=== PATIENT | male | born 1930 | race Caucasian/White ===

== ENCOUNTER 2018-03-01 12:30 | Inpatient (IN) | payer MEDICARE ==
[2018-03-01 09:32] VITALS: BMI 24.4
[2018-03-13] MEDS ORDERED: Vancomycin HCl 1.5 GM in Sodium Chloride 0.9% 250 ML 300 ML IVPB SCH ×3 (06:15→18:00)
[2018-03-13] MEDS ORDERED: Levofloxacin 500 mg/D5W 100 ml Premix Bag ONE (07:01)
[2018-03-13] MEDS ORDERED: Sodium Chloride 0.9% 100 ML ONE (07:01)
[2018-03-13] MEDS ORDERED: Promethazine HCl 25 MG/ML VIAL IM PRN ×2 (07:04→08:30)
[2018-03-13] MEDS ORDERED: Ondansetron HCl/PF 4 MG/2 ML Vial IVP PRN ×2 (07:04→08:30)
[2018-03-13] MEDS ORDERED: traMADol HCl 50 MG TAB PO PRN ×3 (07:04→08:30)
[2018-03-13] MEDS ORDERED: Acetaminophen 325 MG TAB PO PRN (07:04)
[2018-03-13] MEDS ORDERED: HYDROcodone/Acetaminophen 10/325 mg Tablet PO PRN (07:04)
[2018-03-13] MEDS ORDERED: diphenhydrAMINE 25 MG CAP PO PRN ×2 (07:04→08:30)
[2018-03-13] MEDS ORDERED: Zolpidem Tartrate 5 MG TAB PO PRN ×2 (07:04→08:30)
[2018-03-13] MEDS ORDERED: Fentanyl 100 MCG/2 ML VIAL SLOW IVP PRN ×2 (07:04)
[2018-03-13] MEDS ORDERED: Tranexamic Acid 1,000 MG in Sodium Chloride 0.9% 100 ML IVPB SCH (07:15)
[2018-03-13] MEDS ORDERED: Hydrocerin (Eucerin) Cream 120 gm Jar TOP PRN (08:30)
[2018-03-13] MEDS ORDERED: Bupivacaine 0.25% 10 ML VIAL EPIDURAL PRN (08:30)
[2018-03-13] MEDS ORDERED: fentaNYL Citrate/PF 1,250 MCG, Bupivacaine 25 ML in Sodium Chloride 0.9% 250 ML 200 ML EPIDURAL SCH (08:30)
[2018-03-13] MEDS ORDERED: diphenhydrAMINE 50 MG/ML VIAL IM PRN (08:30)
[2018-03-13] MEDS ORDERED: HYDROcodone/Acetaminophen 5/325 mg Tablet PO PRN ×2 (08:30)
[2018-03-13] MEDS ORDERED: Promethazine HCl 25 MG SUPP PR PRN (08:30)
[2018-03-13] MEDS ORDERED: Ketorolac Tromethamine 30 MG/ML VIAL IVP PRN (08:30)
[2018-03-13] MEDS ORDERED: Naloxone HCl 0.4 mg/ml Vial IV PRN (08:30)
[2018-03-13] MEDS ORDERED: Naloxone HCl 0.4 mg/ml Vial IVP PRN (08:30)
[2018-03-13] MEDS ORDERED: diphenhydrAMINE 50 MG/ML VIAL IVP PRN (08:30)
[2018-03-13] MEDS ORDERED: Ropivacaine 0.5% HCl/PF (150 MG/30 ML VIAL) ONE (09:25)
--- NOTE | 2018-03-13 10:36 | OP ---
DATE OF PROCEDURE: 03/13/2018 PREOPERATIVE DIAGNOSIS: End-stage bicompartmental osteoarthritis, left hip. POSTOPERATIVE DIAGNOSIS: End-stage bicompartmental osteoarthritis, left hip. PROCEDURE: Press-fit left total hip arthroplasty. SURGEON: El Monique M.D. PATROL COMMANDER: Mahin Weems PA-C. ANESTHESIA: General via endotracheal tube augmented with indwelling epidural. COMPONENTS USED: [facility], Accolade press-fit size 7 hip stem with a Tritanium hemispher ical 58 mm cup press fit, a 10 degree polyethylene fixed bearing insert, and -5 neck length. A V40 m etallic 36 mm diameter femoral head. FINDINGS: End-stage severe degenerative bicompartmental disease, bone on bone arthrosis, periarticul ar osteophyte formation, large serous effusion, hypertrophic synovium. DRAINS: None. SPECIMENS: None. COMPLICATIONS: None. COUNTS: Correct. ESTIMATED BLOOD LOSS: 100 mL. INDICATIONS FOR SURGERY: Beny is an 87-year-old white male who has had progressive left hip, groi n, and thigh pain upon standing for the last 5-7 years. He has failed conservative management and el ected to proceed with total hip arthroplasty as definitive treatment of his pain. PROCEDURE IN DETAIL: After informed consent was obtained in the preoperative holding area, the patie nt was taken to the operative suite where general anesthesia was induced. The patient was then posit ioned in the lateral decubitus position. The hip was then prepped and draped in usual sterile fashio n. The patient received preoperative antibiotics. Prior to incision, time-out was called and all me mbers of the surgical team agreed upon site, surgeon, and patient. After this, a longitudinal incisi on was made directly over the trochanter, noted by palpation extending 2 fingerbreadths above and bel ow the trochanter. The deeper subcutaneous layer was undermined with Bovie electrocautery. The ilio tibial band was encountered and incised sharply and the plane below this was developed bluntly. A vanessa retractor was placed to hold this opened. The lateral aspect of the trochanter and the abduct or muscles were encountered and then reflected anteriorly off the trochanter using Bovie electrocaute ry. Once this was completed, the anterior capsule was then encountered and identified and copious ca psulotomy was carried out, exposing the femoral neck and head. Dislocation maneuver was then performe d and an in situ provisional neck cut was then made using the oscillating saw. Attention was then tu rned to acetabular preparation and sequential reaming was carried out up to the appropriate diameter and a trial was then malleted into place with good firm resistance and no pullout. The permanent loree tabular shell was then malleted squarely into place, as was the appropriate liner. Once completed, t he wound was copiously irrigated and attention was then turned to femoral preparation. Flexion and ex ternal rotation was performed of the exposed thigh and femoral elevators were then placed at the prox imal aspect of the wound. Canal finder was used to establish the length of the canal and sequential reaming was carried out, followed by broaching. Once the appropriate stability was established with the trial broaches with both flexion, extension and rotational stability, we did trial with neutral a nd 2 mm offset incremental necks. Once the appropriate size was decided upon, with good stability no cintia with flexion, extension, internal and external rotation and shuck being negative, we removed the femoral trial broach and malletted into place the permanent prosthesis with good firm fit, which was also stable to rotation. Again, the hip felt very stable to flexion, extension, internal and externa l rotation. Leg lengths appeared near anatomic clinically and we were quite happy with prosthesis pl acement. Copious irrigation was then carried out through the entirety of the wound. Primary closure of the abductors was accomplished with interrupted #2 Vicryl [id number] stitches and the IT ban d was then closed with interrupted #2 Vicryl, oversewn with a #2 running barbed Quill stitch. Subcut aneous fascia was closed with running barbed Quill stitch and a subcuticular Monocryl barbed Quill st itch was used for skin closure and augmented with skin cement. A sterile dressing was applied. The p rocedure was terminated without any complication. All counts were correct. The patient was awakened in the operative suite and taken to the recovery room in stable condition.
[2018-03-13] MEDS ORDERED: Glycopyrrolate 0.2 MG/ML 5 ML SYRINGE ONE (11:26)
[2018-03-13] MEDS ORDERED: Dexamethasone 20 MG/5 ML VIAL ONE (11:26)
[2018-03-13] MEDS ORDERED: Ondansetron HCl/PF 4 MG/2 ML Vial ONE (11:26)
[2018-03-13] MEDS ORDERED: ePHEDrine/0.9% NaCl/PF SYRINGE 50 mg/10 ml ONE (11:26)
[2018-03-13] MEDS ORDERED: Lidocaine 1% PF 5 ML VIAL ONE (11:26)
[2018-03-13] MEDS ORDERED: PROPOFOL 200 MG/20 ML VIAL ONE (11:26)
--- NOTE | 2018-03-13 11:29 | RAD ---
TWO VIEWS LEFT HIP: INDICATION: Postop total hip, radiographic evaluation. FINDINGS: There is a left hip prosthesis present without evidence of hardware complication. There are adjacent metallic clips of the left hemipelvis. Postprocedural air is seen at the regional soft tissues. IMPRESSION: Postoperative left hip without hardware complication. POS: CYNTHIA
[2018-03-13] MEDS: Sodium Chloride 0.9% 1,000 ML IV SCH ×2 (12:27→18:29)
[2018-03-13] MEDS: Brimonidine Tartrate 0.2% Ophth Soln 5 ml Bottle EA EYE SCH ×2 (12:27→20:53)
[2018-03-13] MEDS: Aspirin 325 MG TAB PO SCH ×2 (12:27→20:23)
[2018-03-13] MEDS: Lisinopril/Hydrochlorothiazide 10 mg/12.5 mg Tablet PO SCH (12:28)
[2018-03-13] MEDS: Timolol 0.5% Ophth Soln 5 ml Bottle EA EYE SCH ×2 (12:28→20:58)
[2018-03-13] MEDS: Senokot S 8.6-50 MG TAB PO SCH ×2 (12:28→20:24)
[2018-03-13] MEDS: Ferrous Gluconate 324 MG TAB PO SCH ×2 (12:28→20:23)
[2018-03-13] MEDS: Multivitamin W/ Minerals 1 TAB PO SCH (12:28)
[2018-03-13] MEDS: Clindamycin/D5W 900 MG in Premix Bag 1 BAG IVPB SCH ×2 (12:46→16:52)
[2018-03-13] MEDS ORDERED: Sodium Chloride 0.65% Nasal 44 ML BOT EA NARE PRN (13:31)
[2018-03-13] MEDS ORDERED: Artificial Tears 18 DROP/0.9 ML EA EYE PRN (13:31)
[2018-03-13] MEDS ORDERED: hydrALAZINE 20 MG/ML VIAL SLOW IVP PRN (13:31)
[2018-03-13] MEDS ORDERED: Diabetic Tussin 200 MG/10 ML UDCUP PO PRN (13:31)
[2018-03-13] MEDS ORDERED: Bisacodyl 10 MG SUPP PR PRN (13:31)
[2018-03-13] MEDS ORDERED: Famotidine 20 MG TAB PO PRN (13:31)
[2018-03-13] MEDS ORDERED: Mag-Al 1200 mg/1200 mg/30 ML UDCUP PO PRN (13:31)
[2018-03-13] MEDS ORDERED: Eucerin (Mineral Oil/Petrolatum,White) 30 gm Jar TOP PRN (13:31)
[2018-03-13] MEDS ORDERED: Milk Of Magnesia 30 ML UDCUP PO PRN (13:31)
--- NOTE | 2018-03-13 14:05 | CON ---
DATE OF CONSULTATION: 03/13/2018 PRIMARY CARE PHYSICIAN: Dr. Rod whyte. PRIMARY ATTENDING: Dr. El Monique. REASON FOR ADMISSION: Elective admission for left total hip replacement. REASON FOR CONSULT: Medical comanagement. HISTORY OF PRESENT ILLNESS: An 87-year-old male, who has history of hypertension, dyslipidemia, macu lar degeneration, glaucoma, who was electively admitted by Dr. Monique for left total hip replacement. The patient has chronic left knee pain. The patient has osteoarthritis diagnosis made as an outpat ient basis. He was tried all conservative measures for his left knee pain, but it was gradually gett ing worse and because of left hip pain, his physical activity significantly reduced. He was having d ifficulty performing his daily activities and finally patient decided to go for hip replacement. The patient was admitted for left total hip replacement. The patient had surgery done by Dr. Monique this morning without any complication and postoperatively at [facility], we are consulted for medical comanagement. The patient denies any pain. He denies any chest pain, shortness of breath. He denies any cough. H e denies any UTI symptoms. He denies any constipation, diarrhea, melena or hematochezia. REVIEW OF SYSTEMS: The following complete review of systems was negative, unless otherwise mentioned in the HPI or below: Constitutional: Weight loss or gain, ability to conduct usual activities. Skin: Rash, itching. Eyes: Double vision, pain. ENT/Mouth: Nose bleeding, neck stiffness, pain, tenderness. Cardiovascular: Palpitations, dyspnea on exertion, orthopnea. Respiratory: Shortness of breath, wheezing, cough, hemoptysis, fever or night sweats. Gastrointestinal: Poor appetite, abdominal pain, heartburn, nausea, vomiting, constipation, or diarr hea. Genitourinary: Urgency, frequency, dysuria, nocturia. Musculoskeletal: Pain, swelling. Neurologic/Psychiatric: Anxiety, depression. Allergy/Immunologic: Skin rash, bleeding tendency. Please see my HPI for pertinent positive and negative. All other review of system reviewed and negat rony except as mentioned in the HPI. PAST MEDICAL HISTORY: Osteoarthritis, hypertension, dyslipidemia, glaucoma, macular degeneration. PAST SURGICAL HISTORY: Appendicectomy, tonsillectomy, herniorrhaphy, left and right total knee repla cement and status post left hip replacement, bladder surgery, umbilical hernia repair, and carpal [place] repair PAST PSYCHIATRIC HISTORY: Reviewed and negative. SOCIAL HISTORY: Patient is retired. He is . He quit smoking in 1962. He denies any alcohol abuse. He denies any other illicit drug abuse. He lives at home with his family. FAMILY HISTORY: Son has diabetes and hypertension. One brother diagnosed with bladder cancer. CURRENT HOME MEDICATIONS: Aspirin 81 mg p.o. daily, brimonidine with a timolol ophthalmic drops eye daily, Artificial Tears drops b.i.d., Prinzide 1 tablet p.o. daily, and Zocor 40 mg p.o. at bedtime. ALLERGIES: PENICILLIN. PHYSICAL EXAMINATION: VITAL SIGNS: Currently, blood pressure 152/77, pulse 80, respiratory rate 18, saturation 99% on room air, weight 185 pounds. GENERAL: The patient is currently alert, awake, in no obvious acute distress. HEENT: Head: Normocephalic, atraumatic. Eyes: Pupils round, reactive to light. Extraocular muscl e intact. ENT: Oropharynx within normal limits. Moist mucous membranes. No oral lesion, no pharyn geal erythema, no exudate. NECK: Supple, no JVD, no thyromegaly, no carotid bruit, no jugular venous distention. LUNGS: Clear to auscultation without any rhonchi or rales. CARDIAC: S1 and S2 regular without any murmur, no gallop, no rub. ABDOMEN: Soft, bowel sounds present, nontender, nondistended. No organomegaly, no mass, no suprapub ic tenderness. BACK: Unremarkable, no CVA tenderness. EXTREMITIES: Upper extremity passive movement of all joints are normal. Lower extremities: No whitney a. Good peripheral pulsation. Surgical site with a dressing. NEUROLOGIC: Nonfocal examination. The patient does have epidural in place. SIGNIFICANT LABORATORY DATA: CBC: WBC 6.6, hemoglobin 13.9, platelet 214. INR 1.0. BMP: Sodium 1 35, potassium 4.2, chloride 102, carbon dioxide 27, anion gap 10, BUN 22, creatinine 1.23, glucose 10 2, calcium 9.3. Urinalysis unremarkable. Hip x-ray reviewed. Chest x-ray based on my review, no ac oriana cardiopulmonary process. ASSESSMENT AND PLAN: 1. Left total hip replacement, postoperative day #1, the patient had surgery by Dr. Eneida cody any complication. The patient will get aspirin for deep venous thrombosis prophylaxis. Patient will have epidural as per Anesthesia. The patient will continue PT/OT as per [facility] treatment. His pain will be controlled with pain medication. 2. Glaucoma/macular degeneration. Patient will continue brimonidine and timolol ophthalmic drops da deandre. 3. Hypertension. If blood pressure permits, then we will continue Prinzide 1 tablet p.o. daily. We will hold blood pressure, systolic blood pressure less than 120. 4. Deep venous thrombosis prophylaxis. Patient is on aspirin 325 mg p.o. b.i.d. 5. Gastrointestinal prophylaxis, Pepcid 20 mg p.o. b.i.d. 6. Code status: The patient is FULL CODE. Patient's son is surrogate decision maker. Disposition plan based on clinical course. Thank you for the consult. We will follow up with you while in hospital. Plan of care discussed anselmo lanza the family member at bedside.
[2018-03-13] MEDS: Atorvastatin Calcium 20 MG TAB PO SCH (20:23)
[2018-03-13] MEDS ORDERED: SIMVASTATIN 40 MG PO SCH (21:00)
[2018-03-14] MEDS: Sodium Chloride 0.9% 1,000 ML IV SCH ×3 (04:56→23:59)
[2018-03-14 05:59] LABS: Hemoglobin 12.5 g/dL (14.0-18.0); Mean Corpuscular HGB CONC 33.6 g/dL (32.0-36.0); Mean Corpuscular Hemoglobin 30.2 pg (27.0-31.0); Mean Platelet Volume 6.9 fL (7.4-10.4); Platelet Count 184 thou/uL (130-400); RBC Distribution Width 13.6 % (11.5-14.5); Red Blood Cell (RBC) Count 4.13 mill/uL (4.70-6.10); White Blood Cell (WBC) Count 10.1 thou/uL (4.8-10.8)
[2018-03-14] MEDS: Ferrous Gluconate 324 MG TAB PO SCH ×2 (07:33→23:34)
[2018-03-14] MEDS: Aspirin 325 MG TAB PO SCH ×2 (07:33→23:34)
[2018-03-14] MEDS: Multivitamin W/ Minerals 1 TAB PO SCH (07:34)
[2018-03-14] MEDS: Senokot S 8.6-50 MG TAB PO SCH ×2 (07:34→23:34)
[2018-03-14] MEDS: Brimonidine Tartrate 0.2% Ophth Soln 5 ml Bottle EA EYE SCH ×2 (07:35→23:42)
[2018-03-14] MEDS: Timolol 0.5% Ophth Soln 5 ml Bottle EA EYE SCH ×2 (07:35→23:41)
--- NOTE | 2018-03-14 08:01 | PRG ---
DATE OF SERVICE: 03/14/2018. SUBJECTIVE: Beny is an 87-year-old white male who is postop day #1 from a left total hip arthropl asty. He is doing relatively well this morning. He has no complaints. He was resting comfortably l ast evening. OBJECTIVE: VITAL SIGNS: Temperature 98.4, pulse 88, respiratory rate 18, O2 saturation room air 93%, blood pres sure 104/85. GENERAL: He is alert and oriented to person, place, time, and situation. Grossly nonfocal. EXTREMITIES: Incision is clean and closed. No erythema and he is neurovascularly intact in both low er extremities. Postoperative x-ray demonstrated good fit and finish of the metaphyseal fit of his femoral component. Hemoglobin and hematocrit are 12.5 and 37.1. ASSESSMENT: 1. An 87-year-old male postop day 1, left total hip arthroplasty, doing relatively well. 2. Postoperative hemorrhagic anemia, stable. PLAN: Continue current management, probable transfer to skilled facility postop day 2 or 3, give con sideration to inpatient rehab.
--- NOTE | 2018-03-14 10:04 | PDOC.PN ---
- Subjective Encounter Start Date: 03/14/18 Encounter Start Time: 07:40 -: old records requested/rev Patient seen and examined for medical problems, pain is controlled. No new complaints. No overnight events - Objective Resuscitation Status: Resuscitation Status FULL:Full Resuscitation MAR Reviewed: Yes Vital Signs & Weight: Vital Signs (12 hours) Temp Pulse Resp BP BP Pulse Ox 03/14/18 08:03 98.9 F 94 12 104/55 L 92 L 03/14/18 08:00 98.9 F 94 12 03/14/18 07:34 104/55 L 03/14/18 04:40 98.4 F 88 18 104/55 L 93 L 03/14/18 01:13 99.6 F 95 20 100/55 L 92 L Weight Admit Weight 185 lb Weight 185 lb I&O: 03/13/18 03/14/18 03/15/18 06:59 06:59 06:59 Intake Total 3340 240 Output Total 1600 Balance 1740 240 Result Diagrams: 03/14/18 05:30 Phys Exam - Physical Examination Constitutional: NAD HEENT: PERRLA, moist MMs, sclera anicteric Neck: no JVD, supple Respiratory: no wheezing, no rales, no rhonchi Cardiovascular: RRR, no significant murmur, no rub Gastrointestinal: soft, non-tender, no distention, positive bowel sounds Musculoskeletal: no edema, pulses present surgical site with dressing Neurological: non-focal, normal sensation, moves all 4 limbs Psychiatric: normal affect, A&O x 3 Skin: no rash, normal turgor Dx/Plan (1) Status post left hip replacement Code(s): Z96.642 - PRESENCE OF LEFT ARTIFICIAL HIP JOINT Status: Acute (2) Anemia, normocytic normochromic Code(s): D64.9 - ANEMIA, UNSPECIFIED Status: Chronic (3) Dyslipidemia Code(s): E78.5 - HYPERLIPIDEMIA, UNSPECIFIED Status: Chronic (4) Glaucoma Code(s): H40.9 - UNSPECIFIED GLAUCOMA Status: Chronic (5) Hypertension Code(s): I10 - ESSENTIAL (PRIMARY) HYPERTENSION Status: Chronic - Plan cont current plan of care, PT/OT * continue aspirin for DVT prophylaxis * continue pepcid for GI prophylaxis as needed * continue PT/OT as per [facility] protocol treatment * medication reviewed as below * symptomatic treatment * pain controlled . Review of Systems - Review of Systems Eyes: negative: Pain, Vision Change, Conjunctivae Inflammation, Eyelid Inflammation, Redness, Other ENT: negative: Ear Pain, Ear Discharge, Nose Pain, Nose Discharge, Nose Congestion, Mouth Pain, Mouth Swelling, Throat Pain, Throat Swelling, Other Respiratory: negative: Cough, Dry, Shortness of Breath, Hemoptysis, SOB with Excertion, Pleuritic Pain, Sputum, Wheezing Cardiovascular: negative: chest pain, palpitations, orthopnea, paroxysmal nocturnal dyspnea, edema, light headedness, other Gastrointestinal: negative: Nausea, Vomiting, Abdominal Pain, Diarrhea, Constipation, Melena, Hematochezia, Other Genitourinary: negative: Dysuria, Frequency, Incontinence, Hematuria, Retention , Other Musculoskeletal: negative: Neck Pain, Shoulder Pain, Arm Pain, Back Pain, Hand Pain, Leg Pain, Foot Pain, Other Skin: negative: Rash, Lesions, [place], Bruising, Other - Medications/Allergies Allergies/Adverse Reactions: Allergies Allergy/AdvReac Type Severity Reaction Status Date / Time Penicillins Allergy Verified 03/01/18 09:34 Medications: Current Medications Acetaminophen (Tylenol) 650 mg PO Q4H PRN PRN Reason: BREAKTHRU PAIN/FEVER Hydrocodone Bitart/Acetaminophen (Lund 5/325) 1 tab PO Q4H PRN PRN Reason: Mild Pain 0-3 Last Admin: 03/14/18 07:34 Dose: 1 tab Hydrocodone Bitart/Acetaminophen (Lund 5/325) 2 tab PO Q4H PRN PRN Reason: For Moderate Pain 4-6 Al Hydroxide/Mg Hydroxide (Maalox) 15 ml PO Q4H PRN PRN Reason: Heartburn or Indigestion Artificial Tears (Tears Naturale) 0 drop EA EYE PRN PRN PRN Reason: Dry Eyes Aspirin (Aspirin) 325 mg PO BID [facility] Last Admin: 03/14/18 07:33 Dose: 325 mg Atorvastatin Calcium (Lipitor) 20 mg PO HS [facility] Last Admin: 03/13/18 20:23 Dose: 20 mg Bisacodyl (Dulcolax) 10 mg [place] DAILYPRN PRN PRN Reason: Constipation Brimonidine Tartrate (Alphagan 0.2% Ophth Soln) 1 drop EA EYE BID [facility] Last Admin: 03/14/18 07:35 Dose: 1 drp Bupivacaine HCl (Marcaine) 5 ml EPIDURAL ONE PRN PRN Reason: UNCONTROLLED PAIN Stop: 03/16/18 08:31 Diphenhydramine HCl (Benadryl) 25 mg PO Q3H PRN PRN Reason: Itching Diphenhydramine HCl (Benadryl) 25 mg IM Q3H PRN PRN Reason: Itching Diphenhydramine HCl (Benadryl) 25 mg IVP Q3H PRN PRN Reason: Itching Emollient Cream (Hydrocerin Cream) 0 gm TOP PRN PRN PRN Reason: Itching Famotidine (Pepcid) 20 mg PO BIDPRN PRN PRN Reason: Heartburn or Indigestion Ferrous Gluconate (Fergon) 324 mg PO BID [facility] Last Admin: 03/14/18 07:33 Dose: 324 mg Guaifenesin (Robitussin Sf) 200 mg PO Q4H PRN PRN Reason: Cough Lisinopril/HCTZ (Prinizide 10-12.5) 1 tab PO DAILY [facility] Last Admin: 03/13/18 12:28 Dose: Not Given Hydralazine HCl (Apresoline) 10 mg SLOW IVP Q4H PRN PRN Reason: Systolic BP > 180 Sodium Chloride (Normal Saline 0.9%) 1,000 mls @ 100 mls/hr IV .Q10H [facility] Last Admin: 03/14/18 04:56 Dose: Not Given Fentanyl Citrate 1,250 mcg/Bupivacaine HCl 25 ml/ Sodium Chloride 250 mls @ 6 mls/hr EPIDURAL INF [facility] Iron/Minerals/Multivitamins (Theragran M) 1 tab PO DAILY [facility] Last Admin: 03/14/18 07:34 Dose: 1 tab Ketorolac Tromethamine (Toradol) 15 mg IVP Q6H PRN PRN Reason: Moderate Pain (4-6) Stop: 03/16/18 08:31 Magnesium Hydroxide (Milk Of Magnesium) 30 ml PO DAILYPRN PRN PRN Reason: Constipation Mineral Oil/White Petrolatum (Eucerin Cream) 0 gm TOP BIDPRN PRN PRN Reason: Dry Skin Naloxone HCl (Narcan) 0.2 mg IV Q5MIN PRN PRN Reason: RR <=8 OR OBTUNDED/UNAROUSABLE Naloxone HCl (Narcan) 0.1 mg IVP Q15MIN PRN PRN Reason: URINARY RETENTION Ondansetron HCl (Zofran) 4 mg IVP Q6H PRN PRN Reason: Nausea/Vomiting Promethazine HCl (Phenergan) 12.5 mg IM Q4H PRN PRN Reason: Nausea Promethazine HCl (Phenergan Suppository) 25 mg [place] Q4H PRN PRN Reason: Nausea/Vomiting Senna/Docusate Sodium (Senokot S) 2 tab PO BID [facility] Last Admin: 03/14/18 07:34 Dose: 2 tab Sodium Chloride (Flush - Normal Saline) 10 ml IVF PRN PRN PRN Reason: Saline Flush Sodium Chloride ([place] Nasal [place] 0.65%) 0 ml EA NARE QIDPRN PRN PRN Reason: Nasal Congestion Timolol Maleate (Timoptic 0.5% Oph Soln) 1 drop EA EYE BID [facility] Last Admin: 03/14/18 07:35 Dose: 1 drp Tramadol HCl (Ultram) 50 mg PO Q6H PRN PRN Reason: Mild Pain 1-3 Tramadol HCl (Ultram) 100 mg PO Q6H PRN PRN Reason: Moderate Pain 4-6 Zolpidem Tartrate (Ambien) 5 mg PO HSPRN PRN PRN Reason: Insomnia
[2018-03-14] MEDS: Lisinopril/Hydrochlorothiazide 10 mg/12.5 mg Tablet PO SCH (18:37)
[2018-03-14] MEDS: Atorvastatin Calcium 20 MG TAB PO SCH (23:34)
[2018-03-15 06:03] LABS: Hemoglobin 11.6 g/dL (14.0-18.0); Mean Corpuscular HGB CONC 33.2 g/dL (32.0-36.0); Mean Corpuscular Volume 90.1 fL (78.0-98.0); Mean Platelet Volume 7.1 fL (7.4-10.4); Platelet Count 178 thou/uL (130-400); RBC Distribution Width 13.7 % (11.5-14.5); Red Blood Cell (RBC) Count 3.88 mill/uL (4.70-6.10); White Blood Cell (WBC) Count 11.9 thou/uL (4.8-10.8)
[2018-03-15] MEDS: Lisinopril/Hydrochlorothiazide 10 mg/12.5 mg Tablet PO SCH (09:55)
[2018-03-15] MEDS: Aspirin 325 MG TAB PO SCH ×2 (09:58→21:05)
[2018-03-15] MEDS: Ferrous Gluconate 324 MG TAB PO SCH ×2 (09:58→21:05)
[2018-03-15] MEDS: Multivitamin W/ Minerals 1 TAB PO SCH (09:58)
[2018-03-15] MEDS: Brimonidine Tartrate 0.2% Ophth Soln 5 ml Bottle EA EYE SCH ×2 (09:59→21:20)
[2018-03-15] MEDS: Timolol 0.5% Ophth Soln 5 ml Bottle EA EYE SCH ×2 (10:00→21:07)
[2018-03-15] MEDS: Senokot S 8.6-50 MG TAB PO SCH ×2 (10:00→21:09)
--- NOTE | 2018-03-15 10:39 | PDOC.PN ---
- Subjective Encounter Start Date: 03/15/18 Encounter Start Time: 09:00 Patient seen and examined for medical problems. No new complaints. No overnight events - Objective Resuscitation Status: Resuscitation Status FULL:Full Resuscitation MAR Reviewed: Yes Vital Signs & Weight: Vital Signs (12 hours) Temp Pulse Resp BP BP Pulse Ox 03/15/18 10:00 93 119/90 03/15/18 09:55 93 119/69 03/15/18 08:35 99.1 F 93 14 119/69 93 L 03/15/18 04:16 98.1 F 76 20 110/58 L 91 L 03/14/18 23:54 99.1 F 89 20 128/66 90 L 03/14/18 23:41 100 Weight Admit Weight 185 lb Weight 185 lb I&O: 03/14/18 03/15/18 03/16/18 06:59 06:59 06:59 Intake Total 3340 480 Output Total 1600 1450 Balance 1740 -970 Result Diagrams: 03/15/18 05:10 Phys Exam - Physical Examination Constitutional: NAD HEENT: PERRLA, moist MMs, sclera anicteric Neck: no JVD, supple Respiratory: no wheezing, no rales, no rhonchi Cardiovascular: RRR, no significant murmur, no rub Gastrointestinal: soft, non-tender, no distention, positive bowel sounds Musculoskeletal: no edema, pulses present Neurological: non-focal, normal sensation, moves all 4 limbs Psychiatric: normal affect, A&O x 3 Skin: no rash, normal turgor Dx/Plan (1) Status post left hip replacement Code(s): Z96.642 - PRESENCE OF LEFT ARTIFICIAL HIP JOINT Status: Acute (2) Anemia, normocytic normochromic Code(s): D64.9 - ANEMIA, UNSPECIFIED Status: Chronic (3) Dyslipidemia Code(s): E78.5 - HYPERLIPIDEMIA, UNSPECIFIED Status: Chronic (4) Glaucoma Code(s): H40.9 - UNSPECIFIED GLAUCOMA Status: Chronic (5) Hypertension Code(s): I10 - ESSENTIAL (PRIMARY) HYPERTENSION Status: Chronic - Plan cont current plan of care, 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 Review of Systems - Review of Systems Eyes: negative: Pain, Vision Change, Conjunctivae Inflammation, Eyelid Inflammation, Redness, Other ENT: negative: Ear Pain, Ear Discharge, Nose Pain, Nose Discharge, Nose Congestion, Mouth Pain, Mouth Swelling, Throat Pain, Throat Swelling, Other Respiratory: negative: Cough, Dry, Shortness of Breath, Hemoptysis, SOB with Excertion, Pleuritic Pain, Sputum, Wheezing Cardiovascular: negative: chest pain, palpitations, orthopnea, paroxysmal nocturnal dyspnea, edema, light headedness, other Gastrointestinal: negative: Nausea, Vomiting, Abdominal Pain, Diarrhea, Constipation, Melena, Hematochezia, Other Genitourinary: negative: Dysuria, Frequency, Incontinence, Hematuria, Retention , Other Musculoskeletal: negative: Neck Pain, Shoulder Pain, Arm Pain, Back Pain, Hand Pain, Leg Pain, Foot Pain, Other Skin: negative: Rash, Lesions, [place], Bruising, Other - Medications/Allergies Allergies/Adverse Reactions: Allergies Allergy/AdvReac Type Severity Reaction Status Date / Time Penicillins Allergy Verified 03/01/18 09:34 Medications: Current Medications Acetaminophen (Tylenol) 650 mg PO Q4H PRN PRN Reason: BREAKTHRU PAIN/FEVER Hydrocodone Bitart/Acetaminophen ([place] 5/325) 1 tab PO Q4H PRN PRN Reason: Mild Pain 0-3 Last Admin: 03/14/18 07:34 Dose: 1 tab Hydrocodone Bitart/Acetaminophen ([place] 5/325) 2 tab PO Q4H PRN PRN Reason: For Moderate Pain 4-6 Al Hydroxide/Mg Hydroxide (Maalox) 15 ml PO Q4H PRN PRN Reason: Heartburn or Indigestion Artificial Tears (Tears Naturale) 0 drop EA EYE PRN PRN PRN Reason: Dry Eyes Aspirin (Aspirin) 325 mg PO BID [facility] Last Admin: 03/15/18 09:58 Dose: 325 mg Atorvastatin Calcium (Lipitor) 20 mg PO HS [facility] Last Admin: 03/14/18 23:34 Dose: 20 mg Bisacodyl (Dulcolax) 10 mg [place] DAILYPRN PRN PRN Reason: Constipation Brimonidine Tartrate ([place]ph[place] 0.2% Ophth Soln) 1 drop EA EYE BID [facility] Last Admin: 03/15/18 09:59 Dose: 1 drp Bupivacaine HCl (Marcaine) 5 ml EPIDURAL ONE PRN PRN Reason: UNCONTROLLED PAIN Stop: 03/16/18 08:31 Diphenhydramine HCl (Benadryl) 25 mg PO Q3H PRN PRN Reason: Itching Last Admin: 03/14/18 12:53 Dose: 25 mg Diphenhydramine HCl (Benadryl) 25 mg IM Q3H PRN PRN Reason: Itching Diphenhydramine HCl (Benadryl) 25 mg IVP Q3H PRN PRN Reason: Itching Emollient Cream (Hydrocerin Cream) 0 gm TOP PRN PRN PRN Reason: Itching Famotidine (Pepcid) 20 mg PO BIDPRN PRN PRN Reason: Heartburn or Indigestion Ferrous Gluconate (Fergon) 324 mg PO BID [facility] Last Admin: 03/15/18 09:58 Dose: 324 mg Guaifenesin (Robitussin Sf) 200 mg PO Q4H PRN PRN Reason: Cough Last Admin: 03/14/18 17:26 Dose: 200 mg Lisinopril/HCTZ (Prinizide 10-12.5) 1 tab PO DAILY [facility] Last Admin: 03/15/18 09:55 Dose: 1 tab Hydralazine HCl (Apresoline) 10 mg SLOW IVP Q4H PRN PRN Reason: Systolic BP > 180 Sodium Chloride (Normal Saline 0.9%) 1,000 mls @ 100 mls/hr IV .Q10H [facility] Last Admin: 03/14/18 23:59 Dose: Not Given Fentanyl Citrate 1,250 mcg/Bupivacaine HCl 25 ml/ Sodium Chloride 250 mls @ 6 mls/hr EPIDURAL INF [facility] Last Admin: 03/15/18 04:33 Dose: 250 mls Iron/Minerals/Multivitamins (Theragran M) 1 tab PO DAILY [facility] Last Admin: 03/15/18 09:58 Dose: 1 tab Ketorolac Tromethamine (Toradol) 15 mg IVP Q6H PRN PRN Reason: Moderate Pain (4-6) Stop: 03/16/18 08:31 Magnesium Hydroxide (Milk Of Magnesium) 30 ml PO DAILYPRN PRN PRN Reason: Constipation Mineral Oil/White Petrolatum (Eucerin Cream) 0 gm TOP BIDPRN PRN PRN Reason: Dry Skin Naloxone HCl (Narcan) 0.2 mg IV Q5MIN PRN PRN Reason: RR <=8 OR OBTUNDED/UNAROUSABLE Naloxone HCl (Narcan) 0.1 mg IVP Q15MIN PRN PRN Reason: URINARY RETENTION Ondansetron HCl (Zofran) 4 mg IVP Q6H PRN PRN Reason: Nausea/Vomiting Promethazine HCl (Phenergan) 12.5 mg IM Q4H PRN PRN Reason: Nausea Promethazine HCl (Phenergan Suppository) 25 mg [place] Q4H PRN PRN Reason: Nausea/Vomiting Senna/Docusate Sodium (Senokot S) 2 tab PO BID [facility] Last Admin: 03/15/18 10:00 Dose: Not Given Sodium Chloride (Flush - Normal Saline) 10 ml IVF PRN PRN PRN Reason: Saline Flush Sodium Chloride ([place] Nasal [place] 0.65%) 0 ml EA NARE QIDPRN PRN PRN Reason: Nasal Congestion Timolol Maleate (Timoptic 0.5% Oph Soln) 1 drop EA EYE BID [facility] Last Admin: 03/15/18 10:00 Dose: 1 drp Tramadol HCl (Ultram) 50 mg PO Q6H PRN PRN Reason: Mild Pain 1-3 Tramadol HCl (Ultram) 100 mg PO Q6H PRN PRN Reason: Moderate Pain 4-6 Zolpidem Tartrate (Ambien) 5 mg PO HSPRN PRN PRN Reason: Insomnia
[2018-03-15] MEDS: Sodium Chloride 0.9% 1,000 ML IV SCH ×2 (16:27→21:04)
[2018-03-15] MEDS: Atorvastatin Calcium 20 MG TAB PO SCH (21:05)
[2018-03-16] MEDS: Sodium Chloride 0.9% 1,000 ML IV SCH ×2 (04:48→08:24)
[2018-03-16 05:46] LABS: Hemoglobin 11.5 g/dL (14.0-18.0); Mean Corpuscular HGB CONC 33.9 g/dL (32.0-36.0); Mean Corpuscular Hemoglobin 30.6 pg (27.0-31.0); Mean Corpuscular Volume 90.4 fL (78.0-98.0); Mean Platelet Volume 6.9 fL (7.4-10.4); Platelet Count 185 thou/uL (130-400); RBC Distribution Width 13.8 % (11.5-14.5); Red Blood Cell (RBC) Count 3.76 mill/uL (4.70-6.10); White Blood Cell (WBC) Count 11.8 thou/uL (4.8-10.8)
[2018-03-16] MEDS: Brimonidine Tartrate 0.2% Ophth Soln 5 ml Bottle EA EYE SCH (08:21)
[2018-03-16] MEDS: Timolol 0.5% Ophth Soln 5 ml Bottle EA EYE SCH (08:22)
[2018-03-16] MEDS: Lisinopril/Hydrochlorothiazide 10 mg/12.5 mg Tablet PO SCH (08:23)
[2018-03-16] MEDS: Senokot S 8.6-50 MG TAB PO SCH (08:23)
[2018-03-16] MEDS: Aspirin 325 MG TAB PO SCH (08:23)
[2018-03-16] MEDS: Ferrous Gluconate 324 MG TAB PO SCH (08:24)
[2018-03-16] MEDS: Multivitamin W/ Minerals 1 TAB PO SCH (08:24)
--- NOTE | 2018-03-16 10:27 | PRG ---
DATE OF SERVICE: 03/16/2018 SUBJECTIVE: Beny is an 87-year-old white male who is postoperative day #2 from a left total hip a rthroplasty. He is doing relatively well. He has no complaints. He is improving and is walking, bu t he is still not quite able to ambulate independently; therefore a skilled or swing bed consult has been turned in. OBJECTIVE: VITAL SIGNS: Temperature is 99.1, pulse 88, respiratory rate 20, O2 saturation 97% on room air, bloo d pressure 112/61. GENERAL: He is alert and oriented to person, place, time, and situation. Grossly nonfocal. MUSCULOSKELETAL: He is neurovascularly intact in left lower extremity. His incision is clean and cl osed without any erythema. There is no strike through. IMPRESSION: 1. An 87-year-old white male postoperative day #2, left total knee arthroplasty. 2. Mild postoperative hemorrhagic anemia with hemoglobin 11.6 and hematocrit 34, asymptomatic. PLAN: Continue current care, senior care facility placement probably tomorrow.
--- NOTE | 2018-03-16 10:38 | PDOC.PN ---
- Subjective Encounter Start Date: 03/16/18 Encounter Start Time: 07:50 Patient seen and examined. No new complaints. No overnight events - Objective Resuscitation Status: Resuscitation Status FULL:Full Resuscitation MAR Reviewed: Yes Vital Signs & Weight: Vital Signs (12 hours) Temp Pulse Resp BP Pulse Ox 03/16/18 08:23 83 03/16/18 08:22 83 03/16/18 08:00 97.3 F L 83 18 95 03/16/18 07:10 98.1 F 83 14 135/77 96 03/16/18 03:51 97.9 F 73 20 112/67 95 03/15/18 23:31 97.4 F L 70 20 94/56 L 96 Weight Admit Weight 185 lb Weight 185 lb I&O: 03/15/18 03/16/18 03/17/18 06:59 06:59 06:59 Intake Total 480 1390 500 Output Total 1450 1450 Balance -970 -60 500 Result Diagrams: 03/16/18 05:24 Additional Labs: Accuchecks 03/15/18 20:49 POC Glucose 190 H Phys Exam - Physical Examination Constitutional: NAD HEENT: PERRLA, moist MMs, sclera anicteric Neck: no JVD, supple Respiratory: no wheezing, no rales, no rhonchi Cardiovascular: RRR, no significant murmur, no rub Gastrointestinal: soft, non-tender, no distention, positive bowel sounds Musculoskeletal: no edema, pulses present Neurological: non-focal, normal sensation, moves all 4 limbs Psychiatric: normal affect, A&O x 3 Skin: no rash, normal turgor Dx/Plan (1) Status post left hip replacement Code(s): Z96.642 - PRESENCE OF LEFT ARTIFICIAL HIP JOINT Status: Acute (2) Anemia, normocytic normochromic Code(s): D64.9 - ANEMIA, UNSPECIFIED Status: Chronic (3) Dyslipidemia Code(s): E78.5 - HYPERLIPIDEMIA, UNSPECIFIED Status: Chronic (4) Glaucoma Code(s): H40.9 - UNSPECIFIED GLAUCOMA Status: Chronic (5) Hypertension Code(s): I10 - ESSENTIAL (PRIMARY) HYPERTENSION Status: Chronic - Plan cont current plan of care, 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 Review of Systems - Review of Systems Eyes: negative: Pain, Vision Change, Conjunctivae Inflammation, Eyelid Inflammation, Redness, Other ENT: negative: Ear Pain, Ear Discharge, Nose Pain, Nose Discharge, Nose Congestion, Mouth Pain, Mouth Swelling, Throat Pain, Throat Swelling, Other Respiratory: negative: Cough, Dry, Shortness of Breath, Hemoptysis, SOB with Excertion, Pleuritic Pain, Sputum, Wheezing Cardiovascular: negative: chest pain, palpitations, orthopnea, paroxysmal nocturnal dyspnea, edema, light headedness, other Gastrointestinal: negative: Nausea, Vomiting, Abdominal Pain, Diarrhea, Constipation, Melena, Hematochezia, Other Genitourinary: negative: Dysuria, Frequency, Incontinence, Hematuria, Retention , Other Musculoskeletal: negative: Neck Pain, Shoulder Pain, Arm Pain, Back Pain, Hand Pain, Leg Pain, Foot Pain, Other - Medications/Allergies Allergies/Adverse Reactions: Allergies Allergy/AdvReac Type Severity Reaction Status Date / Time Penicillins Allergy Verified 03/01/18 09:34 Medications: Current Medications Acetaminophen (Tylenol) 650 mg PO Q4H PRN PRN Reason: BREAKTHRU PAIN/FEVER Hydrocodone Bitart/Acetaminophen ([place] 5/325) 1 tab PO Q4H PRN PRN Reason: Mild Pain 0-3 Last Admin: 03/14/18 07:34 Dose: 1 tab Hydrocodone Bitart/Acetaminophen ([place] 5/325) 2 tab PO Q4H PRN PRN Reason: For Moderate Pain 4-6 Last Admin: 03/15/18 16:25 Dose: 2 tab Al Hydroxide/Mg Hydroxide (Maalox) 15 ml PO Q4H PRN PRN Reason: Heartburn or Indigestion Artificial Tears (Tears Naturale) 0 drop EA EYE PRN PRN PRN Reason: Dry Eyes Aspirin (Aspirin) 325 mg PO BID [facility] Last Admin: 03/16/18 08:23 Dose: 325 mg Atorvastatin Calcium (Lipitor) 20 mg PO HS [facility] Last Admin: 03/15/18 21:05 Dose: 20 mg Bisacodyl (Dulcolax) 10 mg [place] DAILYPRN PRN PRN Reason: Constipation Brimonidine Tartrate (Alphagan 0.2% Ophth Soln) 1 drop EA EYE BID [facility] Last Admin: 03/16/18 08:21 Dose: 1 drp Diphenhydramine HCl (Benadryl) 25 mg PO Q3H PRN PRN Reason: Itching Last Admin: 03/14/18 12:53 Dose: 25 mg Diphenhydramine HCl (Benadryl) 25 mg IM Q3H PRN PRN Reason: Itching Diphenhydramine HCl (Benadryl) 25 mg IVP Q3H PRN PRN Reason: Itching Emollient Cream (Hydrocerin Cream) 0 gm TOP PRN PRN PRN Reason: Itching Famotidine (Pepcid) 20 mg PO BIDPRN PRN PRN Reason: Heartburn or Indigestion Ferrous Gluconate (Fergon) 324 mg PO BID [facility] Last Admin: 03/16/18 08:24 Dose: 324 mg Guaifenesin (Robitussin Sf) 200 mg PO Q4H PRN PRN Reason: Cough Last Admin: 03/14/18 17:26 Dose: 200 mg Lisinopril/HCTZ (Prinizide 10-12.5) 1 tab PO DAILY [facility] Last Admin: 03/16/18 08:23 Dose: 1 tab Hydralazine HCl (Apresoline) 10 mg SLOW IVP Q4H PRN PRN Reason: Systolic BP > 180 Sodium Chloride (Normal Saline 0.9%) 1,000 mls @ 100 mls/hr IV .Q10H [facility] Last Admin: 03/16/18 08:24 Dose: Not Given Fentanyl Citrate 1,250 mcg/Bupivacaine HCl 25 ml/ Sodium Chloride 250 mls @ 6 mls/hr EPIDURAL INF [facility] Last Admin: 03/15/18 04:33 Dose: 250 mls Iron/Minerals/Multivitamins (Theragran M) 1 tab PO DAILY [facility] Last Admin: 03/16/18 08:24 Dose: 1 tab Magnesium Hydroxide (Milk Of Magnesium) 30 ml PO DAILYPRN PRN PRN Reason: Constipation Mineral Oil/White Petrolatum (Eucerin Cream) 0 gm TOP BIDPRN PRN PRN Reason: Dry Skin Naloxone HCl (Narcan) 0.2 mg IV Q5MIN PRN PRN Reason: RR <=8 OR OBTUNDED/UNAROUSABLE Naloxone HCl (Narcan) 0.1 mg IVP Q15MIN PRN PRN Reason: URINARY RETENTION Ondansetron HCl (Zofran) 4 mg IVP Q6H PRN PRN Reason: Nausea/Vomiting Promethazine HCl (Phenergan) 12.5 mg IM Q4H PRN PRN Reason: Nausea Promethazine HCl (Phenergan Suppository) 25 mg DE Q4H PRN PRN Reason: Nausea/Vomiting Senna/Docusate Sodium (Senokot S) 2 tab PO BID [facility] Last Admin: 03/16/18 08:23 Dose: 2 tab Sodium Chloride (Flush - Normal Saline) 10 ml IVF PRN PRN PRN Reason: Saline Flush Sodium Chloride ([place] Nasal [place] 0.65%) 0 ml EA NARE QIDPRN PRN PRN Reason: Nasal Congestion Timolol Maleate (Timoptic 0.5% Oph Sol) 1 drop EA EYE BID [facility] Last Admin: 03/16/18 08:22 Dose: 1 drp Tramadol HCl (Ultram) 50 mg PO Q6H PRN PRN Reason: Mild Pain 1-3 Tramadol HCl (Ultram) 100 mg PO Q6H PRN PRN Reason: Moderate Pain 4-6 Zolpidem Tartrate (Ambien) 5 mg PO HSPRN PRN PRN Reason: Insomnia
[2018-03-16 11:40] VITALS: BP 120/73; TEMP 98.1
--- NOTE | 2018-03-17 13:03 | DIS ---
DATE OF ADMISSION: 03/13/2018 DATE OF DISCHARGE: 03/16/2018 PRIMARY CARE PHYSICIAN: Rod Covington M.D. PRIMARY ATTENDING: Dr. El Monique. DISCHARGE DISPOSITION: Swing bed. PRIMARY DISCHARGE DIAGNOSIS: Left total hip replacement. SECONDARY DISCHARGE DIAGNOSES: Normocytic normochromic anemia, dyslipidemia, glaucoma, hypertension. PRIMARY PROCEDURE AND OPERATION: Left total hip replacement by Dr. Monique. RADIOLOGICAL INVESTIGATION: Hip x-ray. SIGNIFICANT LABORATORY DATA: WBC 11.8, hemoglobin 11.5, platelet 185. DISCHARGE MEDICATIONS: Aspirin 325 mg p.o. b.i.d., brimonidine and timolol ophthalmic drops daily, A rtificial Tears daily, Prinzide one tablet daily, simvastatin 40 mg p.o. at bedtime. CONTRAINDICATIONS: None. CODE STATUS: FULL CODE. INPATIENT CONSULTANTS: Dr. Monique was primary. [facility] team was consulted for medical comanagement. TEST RESULTS PENDING ON DISCHARGE: None. ALLERGIES: PENICILLIN. DISCHARGE PLAN: Post hospital, the patient will follow up with primary care physician, Dr. Monique on 04/04/2018 at 1:30 p.m. HOSPITAL COURSE: An 87-year-old male who was electively admitted by Dr. Monique for left hip replacem ent, which was done on 03/13/2018. After surgery, the patient was at the [facility] and [facility] team was consulted for medical comanagement. While in hospital, his medical problems remained stable . The patient's home medication was continued while in hospital as well as upon discharge. He was g iven aspirin for DVT prophylaxis. He did relatively well with [facility] protocol treatment. Because of his overall weakness, he was requiring care home home type of facility and that is w hy he was discharged to [place] [facility]. The patient is seen and examined at bedside today. Please see my progress note from today for furthe r details.
== END 2018-03-16 12:09 | DRG 470 ==
LOC: SURG A 03-13 05:51 → SJJU 03-13 11:11
PROVIDERS: ADMIT Orthopaedic Surgery; ATTEND Orthopaedic Surgery
PROC: 0SRB02A Replacement of Left Hip Joint with Metal on Polyethylene Synthetic Substitute, Uncemented, Open Approach (ICD-10-PCS; principal; 2018-03-13)
DX: M16.12 Unilateral primary osteoarthritis, left hip (principal); D62 Acute posthemorrhagic anemia; Z79.82 Long term (current) use of aspirin; E78.5 Hyperlipidemia, unspecified; H40.9 Unspecified glaucoma; I10 Essential (primary) hypertension; Z88.0 Allergy status to penicillin; H35.30 Unspecified macular degeneration; F32.9 Major depressive disorder, single episode, unspecified; F41.9 Anxiety disorder, unspecified; Z87.891 Personal history of nicotine dependence; Z96.642 Presence of left artificial hip joint; E78.00 Pure hypercholesterolemia, unspecified
CPT/HCPCS: 36415; 36416; 85027; C1776; G8978-GP-CM; G8979-GP-CJ; G8987-GO-CJ; G8988-GO-CI; J1100; J1956; J2001; J2405; J2704; J2795; J3010; J3370; J3490; J7050; J7620

== ENCOUNTER → 2018-03-01 | Outpatient (CLI) | payer MEDICARE ==
[2018-03-01 13:10] LABS: Bilirubin Negative (Negative); Blood, Urine Trace (Negative); Clarity CLEAR (Clear); Glucose, Urine (Dipstick) Negative (Negative); Leukocyte Negative (Negative); Nitrite Negative (Negative); Protein, Urine (Dipstick) Negative (Neg-Trace); Specific Gravity, Urine 1.011 (1.002-1.036); Urobilinogen 0.2 mg/dL (0.2-1.0); pH, Urine 6.5 (5.0-9.0)
[2018-03-01 13:12] LABS: Bacteria/HPF None Seen HPF (None Seen); Hyaline Casts/LPF 0-3 HYALINE CAST LPF (0-3 Hyaline); Pathc Cast-AUWi Flag 0.14 (0-2.49); Squamous Epithelial None Seen HPF (0-3); WBC/HPF None Seen HPF (0-3)
== END ==
LOC: LABBT 08:50
PROVIDERS: ATTEND Orthopaedic Surgery
DX: Z01.818 Encounter for other preprocedural examination (principal); M16.12 Unilateral primary osteoarthritis, left hip
CPT/HCPCS: 81001; 87081; 93005; 93010

== ENCOUNTER 2018-03-09 10:51 | Outpatient (CLI) | payer MEDICARE ==
[2018-03-09 11:35] LABS: #Basophils 0.1 thou/uL (0.0-0.2); #Eosinphils 0.2 thou/uL (0.0-0.7); #Lymphocytes 1.5 thou/uL (1.20-3.40); #Monocytes 0.5 thou/uL (0.11-0.59); #Neutrophils 4.4 thou/uL (1.40-6.50); %Basophils 0.8 % (0.0-1.0); %Eosinophils 2.7 % (0.0-10.0); %Lymphocytes 22.4 % (21.0-51.0); %Monocytes 7.9 % (0.0-10.0); %Neutrophils 66.2 % (42.0-75.0); Hemoglobin 13.9 g/dL (14.0-18.0); Mean Corpuscular HGB CONC 33.9 g/dL (32.0-36.0); Mean Corpuscular Hemoglobin 30.3 pg (27.0-31.0); Mean Corpuscular Volume 89.5 fL (78.0-98.0); Mean Platelet Volume 6.8 fL (7.4-10.4); Platelet Count 214 thou/uL (130-400); RBC Distribution Width 13.5 % (11.5-14.5); Red Blood Cell (RBC) Count 4.57 mill/uL (4.70-6.10); White Blood Cell (WBC) Count 6.6 thou/uL (4.8-10.8)
[2018-03-09 11:44] LABS: Prothrombin Time 13.5 SEC (12.0-14.7)
[2018-03-09 11:57] LABS: Anion Gap 10 mmol/L (10-20); BUN (Urea Nitrogen) 22 mg/dL (8.4-25.7); Calc. Creatinine Clearance 0 mL/min (70-130); Calcium 9.3 mg/dL (7.8-10.44); Carbon Dioxide 27 mmol/L (23-31); Chloride 102 mmol/L (98-107); Estimated GFR-MDRD 55; Glucose 102 mg/dL (83-110); Potassium 4.2 mmol/L (3.5-5.1); Sodium 135 mmol/L (136-145)
== END 2018-03-09 10:52 | disposition home or self-care (01) ==
LOC: LABBT 10:51
PROVIDERS: ATTEND Orthopaedic Surgery
DX: Z01.812 Encounter for preprocedural laboratory examination (principal); M16.12 Unilateral primary osteoarthritis, left hip
CPT/HCPCS: 80048; 85025; 85610; 86850; 86900; 86901

== ENCOUNTER 2018-09-06 12:24 | Emergency (ER) | payer MEDICARE ==
[2018-09-06 13:18] LABS: #Basophils 0.1 thou/uL (0.0-0.2); #Eosinphils 0.2 thou/uL (0.0-0.7); #Lymphocytes 1.6 thou/uL (1.20-3.40); #Monocytes 0.5 thou/uL (0.11-0.59); #Neutrophils 4.8 thou/uL (1.40-6.50); %Basophils 1.1 % (0.0-1.0); %Eosinophils 3.3 % (0.0-10.0); %Lymphocytes 21.7 % (21.0-51.0); %Monocytes 7.1 % (0.0-10.0); %Neutrophils 66.9 % (42.0-75.0); Hemoglobin 13.9 g/dL (14.0-18.0); Mean Corpuscular HGB CONC 31.9 g/dL (32.0-36.0); Mean Corpuscular Hemoglobin 28.5 pg (27.0-31.0); Mean Corpuscular Volume 89.3 fL (78.0-98.0); Mean Platelet Volume 7.4 fL (7.4-10.4); Platelet Count 214 thou/uL (130-400); RBC Distribution Width 12.6 % (11.5-14.5); Red Blood Cell (RBC) Count 4.87 mill/uL (4.70-6.10); White Blood Cell (WBC) Count 7.2 thou/uL (4.8-10.8)
--- NOTE | 2018-09-06 13:33 | RAD ---
RIGHT TIBIA AND FIBULA: History: Pain. Fall. Comparison: None. FINDINGS: The tibia and fibula are intact. Likely a remote medial malleolar fracture. There is some sclerosis of the medial talar dome. Mild vascular calcifications. IMPRESSION: intact proximal tib/fib. POS: [facility]
[2018-09-06 13:37] LABS: Anion Gap 13 mmol/L (10-20); BUN (Urea Nitrogen) 23 mg/dL (8.4-25.7); Calc. Creatinine Clearance 0 mL/min (70-130); Calcium 9.2 mg/dL (7.8-10.44); Carbon Dioxide 24 mmol/L (23-31); Chloride 103 mmol/L (98-107); Estimated GFR-MDRD 54; Glucose 100 mg/dL (83-110); Potassium 4.4 mmol/L (3.5-5.1); Sodium 136 mmol/L (136-145)
--- NOTE | 2018-09-06 13:41 | RAD ---
RIGHT KNEE FOUR VIEWS: History: Pain. Comparison: None. FINDINGS: There is a very subtle cortical lucency in the sagittal orientation of the medial aspect of the tibia l hardware. This was not seen on the tib/fib radiograph. IMPRESSION: Very subtle linear cortical lucency along the medial tibial hardware which may represent an nondispla adan fracture. If patient is focally tender in this area, follow up CT may be beneficial. POS: [facility]
[2018-09-06] MEDS ORDERED: Adacel (T-DAP) 0.5 ML SYRINGE ONE (14:44)
[2018-09-06] MEDS ORDERED: Cephalexin 500 MG CAP ONE (14:44)
[2018-09-06] MEDS ORDERED: Sulfameth/Trimethoprim DS 800-160mg TAB ONE (14:44)
--- NOTE | 2018-09-06 15:16 | ULT ---
ULTRASOUND WITH DOPPLER DUPLEX VENOUS LOWER EXTREMITY RIGHT CPT: 47548 ICD-10-PCS: B54D HISTORY: Pain, edema. TECHNIQUE: Color flow Doppler, spectral waveform analysis of pulsed Doppler, and anguiano-scale imaging with parveen gracy and augmentation, were used to evaluate the right common femoral, femoral, popliteal, posterior tibial, and superficial femoral, veins; and the proximal portions of the profunda femoral and greater saphenous, veins. FINDINGS: There is appropriate compressibility and flow within the deep venous system of the right lower extrem ity. IMPRESSION: 1. No DVT. 2. Soft tissue edema. Correlate clinically. POS: [facility]
--- NOTE | 2018-09-06 15:24 | CT ---
CT RIGHT KNEE WITHOUT CONTRAST: Date: 09/06/18 HISTORY: Concern for fracture. COMPARISON: Radiograph same date. FINDINGS: There is no displaced fracture. No hardware failure. Moderate vascular calcifications. Mild pretibial soft tissue swelling. Small joint effusion. Mild vascular calcifications. IMPRESSION: No acute fracture. POS: [facility]
== END 2018-09-06 15:25 | disposition home or self-care (01) ==
LOC: SCSER 12:24
DX: S80.01XA Contusion of right knee, initial encounter (principal); S70.11XA Contusion of right thigh, initial encounter; L03.115 Cellulitis of right lower limb; E78.5 Hyperlipidemia, unspecified; I10 Essential (primary) hypertension; Z79.82 Long term (current) use of aspirin; Z79.899 Other long term (current) drug therapy; W19.XXXA Unspecified fall, initial encounter
CPT/HCPCS: 80048; 83605; 85025; 90471; 90715